=== PATIENT | female | born 1955 | race Caucasian/White ===

== ENCOUNTER 2016-11-04 17:23 | Emergency (ER) | payer BC, OTHER ==
[2016-11-04 17:34] VITALS: BMI 24.6
[2016-11-04] MEDS ORDERED: SODIUM CHLORIDE 1,000 ML IV STA (18:37)
[2016-11-04] MEDS ORDERED: ONDANSETRON 4 MG/2 ML VIAL IVPB ONE (18:37)
--- NOTE | 2016-11-04 18:37 | PDOC ---
History of Present Illness - General History Source: Patient Exam Limitations: No Limitations - History of Present Illness Initial Comments: 11/04/16 18:40 The patient is a 61 year old female with a significant past medical history of 3 herniated discs in her back, chronic back pain, HLD and bilateral glaucoma who presents to the ED with complaints of back pain and flank pain for 6 days and nausea since yesterday. Patient reports on Saturday, she developed right sided flank pain and neck pain with inflammation of the sides of her neck and headache. She states she visited Urgent on Saturday and was prescribed antibiotics for the inflammation of the neck. Since taking the antibiotics, patient states her chronic back pain and right sided flank pain has worsened and is now radiating to her chest every 5 minutes. She states her back pain is worsened with movement. Patient reports her symptoms are progressively worsening as she developed chills, nausea, and one episode of vomiting last night. Patient also reports urinary frequency, generalized epigastric pain and an increase in gas associated with present symptoms. Denies dysuria and hematuria. Denies diarrhea or constipation. Denies chest pain or shortness of breath. Denies any other symptoms. Surgical hx: Eye surgery, Appendectomy, x 3, tubal ligation PMD: Dr. Abernathy <Bert Rangel - Last Filed: 11/04/16 22:42> <Hilda Link - Last Filed: 11/04/16 22:48> - General Chief Complaint: Nausea Stated Complaint: Vomiting Time Seen by Provider: 11/04/16 17:48 Past History <Bert Rangel - Last Filed: 11/04/16 22:42> - Past Medical History Hypercholesterolemia: Yes Other medical history: CYST R KIDNEY - Surgical History Appendectomy: Yes - Psycho/Social/Smoking Cessation Hx Anxiety: No Suicidal Ideation: No Smoking Status: No Smoking History: Never smoked Number of Cigarettes Smoked Daily: 0 Hx Alcohol Use: No Drug/Substance Use Hx: No Substance Use Type: None <Hilda Link - Last Filed: 11/04/16 22:48> - Past Medical History Allergies/Adverse Reactions: Allergies Allergy/AdvReac Type Severity Reaction Status Date / Time lansoprazole [From Prevacid] Allergy Itching Verified 11/04/16 17:57 TOMATOE Allergy Itching Uncoded 11/04/16 17:57 Home Medications: Ambulatory Orders Rosuvastatin Calcium [Crestor] 5 mg PO DAILY 11/04/16 Sulfamethoxazole/Trimethoprim [Bactrim Ds Tablet] 1 each PO DAILY 11/04/16 Review of Systems - Review of Systems Able to Perform ROS?: Yes Comments:: 11/04/16 18:40 CONSTITUTIONAL: + chills Absent: diaphoresis, generalized weakness, malaise, loss of appetite HEENT: Absent: rhinorrhea, nasal congestion, throat pain, throat swelling, difficulty swallowing, mouth swelling, ear pain, eye pain, visual Changes CARDIOVASCULAR: Absent: chest pain, syncope, palpitations, irregular heart rate, lightheadedness , peripheral edema RESPIRATORY: Absent: cough, shortness of breath, dyspnea with exertion, orthopnea, wheezing, stridor, hemoptysis GASTROINTESTINAL: + epigastric pain, nausea, vomiting, increased gas Absent: abdominal distension, diarrhea, constipation, melena, hematochezia GENITOURINARY: + flank pain, frequency Absent: dysuria, urgency, hesitancy, hematuria, genital pain MUSCULOSKELETAL: + neck pain, back pain, neck inflammation SKIN: Absent: rash, itching, pallor HEMATOLOGIC/IMMUNOLOGIC: Absent: easy bleeding, easy bruising, lymphadenopathy, frequent infections ENDOCRINE: Absent: unexplained weight gain, unexplained weight loss, heat intolerance, cold intolerance NEUROLOGIC: + headache Absent: focal weakness or paresthesias, dizziness, unsteady gait, seizure, mental status changes, bladder or bowel incontinence PSYCHIATRIC: Absent: anxiety, depression, suicidal or homicidal ideation, hallucinations. All Other Systems: Reviewed and Negative <Bert Rangel - Last Filed: 11/04/16 22:42> *Physical Exam - Vital Signs Last Vital Signs Temp Pulse Resp BP Pulse Ox 100.1 F H 91 H 18 131/77 96 11/04/16 17:30 11/04/16 17:30 11/04/16 17:30 11/04/16 17:30 11/04/16 17:30 - Physical Exam Comments: 11/04/16 18:40 GENERAL: Well developed, well nourished. Awake and alert. No acute distress. HEENT: Normocephalic, atraumatic. PERRLA, EOMI. No conjunctival pallor. Sclera are non- icteric. Moist mucous membranes. Oropharynx is clear. NECK: Supple. Full ROM. No JVD. Carotid pulses 2+ and symmetric, without bruits. No thyromegaly. NCo lymphadenopathy. CARDIOVASCULAR: Regular rate and rhythm. No murmurs, rubs, or gallops. Distal pulses are 2+ and symmetric. PULMONARY: No evidence of respiratory distress. Lungs clear to auscultation bilaterally. No wheezing, rales or rhonchi. ABDOMINAL: + slight epigastric tenderness Soft. Non-distended. No rebound or guarding. No organomegaly. Normoactive bowel sounds. MUSCULOSKELETAL + right sided CVA tenderness Normal range of motion at all joints. No bony deformities or tenderness. EXTREMITIES: No cyanosis. No clubbing. No edema. No calf tenderness. SKIN: Warm and dry. Normal capillary refill. No rashes. No jaundice. NEUROLOGICAL: Alert, awake, appropriate. Cranial nerves 2-12 intact. No deficits to light touch and temperature in face, upper extremities and lower extremities. No motor deficits in the in face, upper extremities and lower extremities. Normoreflexic in the upper and lower extremities. Normal speech. Toes are down- going bilaterally. Gait is normal without ataxia. PSYCHIATRIC: Cooperative. Good eye contact. Appropriate mood and affect. <Bert Rangel - Last Filed: 11/04/16 22:42> - Vital Signs Last Vital Signs Temp Pulse Resp BP Pulse Ox 100.1 F H 91 H 18 131/77 96 11/04/16 17:30 11/04/16 17:30 11/04/16 17:30 11/04/16 17:30 11/04/16 17:30 <Hilda Link - Last Filed: 11/04/16 22:48> ED Treatment Course - LABORATORY CBC & Chemistry Diagram: 11/04/16 18:50 11/04/16 18:50 - RADIOLOGY Radiograph Interpretation: 11/04/16 21:23 EXAM: CT ABDOMEN AND PELVIS WITHOUT CONTRAST IMPRESSION: Possible early pancreatitis of the pancreatic head if appropriate clinically. No renal stones or evidence of obstructive uropathy. Right renal cyst. Reported by: Imaging python django developer, Deena Poole D.O. <Bert Rangel - Last Filed: 11/04/16 22:42> - LABORATORY CBC & Chemistry Diagram: 11/04/16 18:50 11/04/16 18:50 <Hilda Link - Last Filed: 11/04/16 22:48> Medical Decision Making - Medical Decision Making 11/04/16 22:44 61-year-old female presents with complaint of some right-sided flank pain, chills, vomited once today. She states that she started antibiotics last Saturday and still has 2 days left of her Bactrim. CBC shows no leukocytosis Chemistries essentially unremarkable Urinalysis shows 54,000, RBCs is nitrate negative and leukocyte esterase negative CAT scan found no cholecystitis, liver, spleen, adrenals are grossly unremarkable. No renal stones or evidence obstruction seen. 3 cm lower pole cyst in the right kidney. Abdominal aorta without a shift. UA, no retroperitoneal hemorrhage. Sigmoid diverticulosis without inflammation and no evidence of obstruction, ascites, free air, diverticulitis Patient might have had a stone earlier for a hemorrhagic cystitis. She was told to finish taking her Bactrim and please follow-up with her primary care physician <Hilda Link - Last Filed: 11/04/16 22:48> *DC/Admit/Observation/Transfer - Attestations Scribe Attestion: 11/04/16 18:40 Documentation prepared by Bert Rangel, acting as electromedical equipment repairer for Hilda Link MD <Bert Rangel - Last Filed: 11/04/16 22:42> <Hilda Link - Last Filed: 11/04/16 22:48> Diagnosis at time of Disposition: Acute flank pain - Discharge Dispostion Disposition: HOME Condition at time of disposition: Stable - Referrals Referrals: Saul Abernathy MD [Primary Care Provider] - - Patient Instructions Additional Instructions: please finish your antibiotics and follow up with your physician this week Return to the emergency department for any worsening symptoms
[2016-11-04] MEDS ORDERED: ACETAMINOPHEN 325 MG TABLET (FP) PO ONE (18:38)
[2016-11-04] MEDS ORDERED: ONDANSETRON 4 MG/2 ML VIAL ONE (19:01)
[2016-11-04] MEDS ORDERED: ACETAMINOPHEN 325 MG TABLET (FP) ONE (19:01)
[2016-11-04 19:02] LABS: BASOPHIL 0.2 % (0-2.0); EOSINOPHIL 16.1 % (0-4.5); MCH 27.2 pg (25.7-33.7); MCHC 32.1 g/dl (32.0-36.0); MEAN CELL VOLUME 84.7 fl (80-96); MEAN PLT VOLUME 8.7 fl (7.5-11.1); NEUTROPHILS 62.1 % (42.8-82.8); PLATELET COUNT 202 K/MM3 (134-434); WHITE BLOOD COUNT 3.6 K/mm3 (4.0-10.0)
[2016-11-04 19:03] LABS: URINE APPEARANCE CLEAR; URINE BILIRUBIN NEGATIVE (NEGATIVE); URINE BLOOD 3+ (NEGATIVE); URINE COLOR LTYELLOW; URINE GLUCOSE (UA) NEGATIVE (NEGATIVE); URINE KETONE NEGATIVE (NEGATIVE); URINE LEUK ESTERASE NEGATIVE (NEGATIVE); URINE NITRITE NEGATIVE (NEGATIVE); URINE PROTEIN NEGATIVE (NEGATIVE); URINE UROBILINOGEN NEGATIVE mg/dL (0.2-1.0)
[2016-11-04 19:07] LABS: URINE MUCUS RARE; URINE RBC 54 /hpf (0-3); URINE WBC 2 /hpf (3-5)
[2016-11-04 20:03] LABS: ALBUMIN 3.9 g/dl (3.4-5.0); ANION GAP 10 (8-16); BILIRUBIN,TOTAL 0.2 mg/dL (0.2-1.0); CALCIUM 9.5 mg/dL (8.5-10.1); CO2 24 mmol/L (21-32); GLUCOSE,RANDOM 103 mg/dL (74-106); SGOT/AST 25 U/L (15-37); SGPT/ALT 28 U/L (12-78); TOT PROT 7.9 g/dl (6.4-8.2)
[2016-11-04 20:04] LABS: ALK PHOS 133 U/L (45-117)
[2016-11-04 20:37] VITALS: TEMP 98.4
[2016-11-04 22:55] VITALS: BP 116/74; PULSE 88
== END 2016-11-04 22:55 | disposition home or self-care (01) ==
LOC: JER 17:23
PROC: 3E033GC Introduction of Other Therapeutic Substance into Peripheral Vein, Percutaneous Approach (ICD-10-PCS; principal; 2016-11-04)
DX: R10.31 Right lower quadrant pain (principal); R35.0 Frequency of micturition; M54.5 Low back pain; G89.29 Other chronic pain; E78.00 Pure hypercholesterolemia, unspecified; H40.9 Unspecified glaucoma
CPT/HCPCS: 36415; 71020-TC; 74176; 80053; 81003; 81015; 83690; 85025; 87040; 87086; 99283-25

== ENCOUNTER 2017-05-27 20:20 | Emergency (ER) | payer BC, OTHER ==
[2017-05-27 21:01] VITALS: PULSE 74; BMI 26.4
--- NOTE | 2017-05-27 21:01 | PDOC ---
Rapid Medical Evaluation Time Seen by Provider: 05/27/17 20:51 Medical Evaluation: Allergies Allergy/AdvReac Type Severity Reaction Status Date / Time lansoprazole [From Prevacid] Allergy Itching Verified 11/04/16 17:57 TOMATOE Allergy Itching Uncoded 11/04/16 17:57 05/27/17 20:51 I have performed a brief in-person evaluation of this patient. The patient presents with a chief complaint of: missed step, fell on stairs around 7 pm, pain to L leg/shoulder, left trapezius pain, "left eye feels heavy ", c/o SOB, denies LOC/nausea/dizziness, per family "talking slower than usual" , no slurred speech Pertinent physical exam findings: tenderness to L trap, ambulatory, no focal neuro deficits I have ordered the following: L shoulder x-ray The patient will proceed to the ED for further evaluation. Discharge Disposition - Diagnosis Fall - Referrals - Patient Instructions - Post Discharge Activity
[2017-05-27] MEDS ORDERED: IBUPROFEN 600 MG TABLET (FP) PO ONE ×2 (23:04→23:17)
--- NOTE | 2017-05-27 23:10 | PDOC ---
History of Present Illness <Sydney Hopkins - Last Filed: 05/28/17 01:46> - General History Source: Patient Exam Limitations: No Limitations - History of Present Illness Initial Comments: 05/28/17 03:02 Patient is a 61 year old female with a significant past medical history of herniated discs in her back, chronic back pain, HLD and bilateral glaucoma who presents to the ED with complaints of of left hand and knee pain, s/p fall that occurred just prior to ED visit. She reports walking on stairs in a store when she slipped and on a step, causing her to fall forward, landing on her left hand and left leg. Patient states her blood pressure has been high since her initial fall, stating that is why the left side of face feels heavy. Denies chest pain, sob. Denies nausea, vomiting. Denies fevers, chills. Denies Allergies: Prevacid, Tomato Social history: No smoking. No alcohol. No illicit drug. Surgical history: Eye surgery, Appendectomy, x 3, tubal ligation PMD: Dr. Abernathy <Chris Morley - Last Filed: 05/28/17 03:03> - General Chief Complaint: Injury Stated Complaint: FALL Time Seen by Provider: 05/27/17 20:51 Past History - Past Medical History COPD: No Hypercholesterolemia: Yes Other medical history: glaucoma B - Surgical History Appendectomy: Yes - Suicide/Smoking/Psychosocial Hx Smoking Status: No Smoking History: Never smoked Have you smoked in the past 12 months: No Number of Cigarettes Smoked Daily: 0 Information on smoking cessation initiated: No Hx Alcohol Use: No Drug/Substance Use Hx: No Substance Use Type: None <Sydney Hopkins - Last Filed: 05/28/17 01:46> <Chris Morley - Last Filed: 05/28/17 03:03> - Past Medical History Allergies/Adverse Reactions: Allergies Allergy/AdvReac Type Severity Reaction Status Date / Time lansoprazole [From Prevacid] Allergy Itching Verified 11/04/16 17:57 TOMATOE Allergy Itching Uncoded 11/04/16 17:57 Home Medications: Ambulatory Orders Rosuvastatin Calcium [Crestor] 5 mg PO DAILY 11/04/16 Review of Systems - Review of Systems Able to Perform ROS?: Yes Comments:: 05/28/17 03:03 GENERAL/CONSTITUTIONAL: No fever or chills. No weakness. HEAD, EYES, EARS, NOSE AND THROAT: No change in vision. No ear pain or discharge. No sore throat. GASTROINTESTINAL: No nausea, vomiting, diarrhea or constipation. GENITOURINARY: No dysuria, frequency, or change in urination. CARDIOVASCULAR: No chest pain or shortness of breath. RESPIRATORY: No cough, wheezing, or hemoptysis. MUSCULOSKELETAL: +Left knee pain. +Left hand pain. +Left neck pain. No joint or muscle swelling. No back pain. SKIN: No rash NEUROLOGIC: No headache, vertigo, loss of consciousness, or change in strength/ sensation. ENDOCRINE: No increased thirst. No abnormal weight change. HEMATOLOGIC/LYMPHATIC: No anemia, easy bleeding, or history of blood clots. ALLERGIC/IMMUNOLOGIC: No hives or skin allergy. <Chris Morley - Last Filed: 05/28/17 03:03> *Physical Exam - Vital Signs Last Vital Signs Temp Pulse Resp BP Pulse Ox 98 F 74 20 174/91 99 05/27/17 20:57 05/27/17 20:57 05/27/17 20:57 05/27/17 20:57 05/27/17 20:57 <Sydney Hopkins - Last Filed: 05/28/17 01:46> - Vital Signs Last Vital Signs Temp Pulse Resp BP Pulse Ox 98.1 F 74 18 142/76 98 05/28/17 01:59 05/28/17 01:59 05/28/17 01:59 05/28/17 01:59 05/28/17 01:59 - Physical Exam Comments: 05/28/17 03:03 GENERAL: Awake, alert, and fully oriented, in no acute distress HEAD: No signs of trauma EYES: +Pupils equal round and reactive to light PERRLA, EOMI, sclera anicteric, conjunctiva clear ENT: Auricles normal inspection, hearing grossly normal, nares patent, oropharynx clear without exudates. Moist mucosa NECK: Normal ROM, supple, no lymphadenopathy, JVD, or masses LUNGS: Breath sounds equal, clear to auscultation bilaterally. No wheezes, and no crackles HEART: Regular rate and rhythm, normal S1 and S2, no murmurs, rubs or gallops ABDOMEN: Soft, nontender, normoactive bowel sounds. No guarding, no rebound. No masses MUSCULOSKELETAL: No midline cervical spine tenderness. No snuff box tenderness. Non tender skin intact ambulation with steady gait. EXTREMITIES: +Diffuse tenderness to left shoulder. +Hypertonicity to the left SCM. +Full ROM of left shoulder. Normal range of motion, no edema. No clubbing or cyanosis. No cords, erythema, or tenderness NEUROLOGICAL: Cranial nerves II through XII grossly intact. Normal speech, normal gait SKIN: Warm, Dry, normal turgor, no rashes or lesions noted. <Chris Morley - Last Filed: 05/28/17 03:03> ED Treatment Course - RADIOLOGY Radiology Studies Ordered: Category Date Time Status CHEST PA & LAT [RAD] Stat Radiology 05/27/17 23:03 Ordered <Sydney Hopkins - Last Filed: 05/28/17 01:46> - Medications Given in the ED: ED Medications Discontinued Medications Generic Name Dose Route Start Last Admin Trade Name Mike PRN Reason Stop Dose Admin Ibuprofen 600 mg 05/27/17 23:04 05/27/17 23:19 Motrin - PO 05/27/17 23:05 600 mg ONCE ONE Administration <Chris Morley - Last Filed: 05/28/17 03:03> Medical Decision Making - Medical Decision Making 05/27/17 23:11 [id number] presenting with L shoulder and L lateral neck pain s/p mechanical fall this afternoon. Took a misstep while going up stairs and fell forward onto her L side , bracing herself with her L hand. Denies head trauma, denies back pain. + slight pain to L hogue. Provider in triage note mentions that family member noted slow speech - when I ask daughter about this she says "she just seems tired, she's speaking and acting normally". Well appearing, +slight ttp to L trapezius/SCM. NO midline c spine tnd, no headstrike, no N/V. No midline T/L spine. No s/o trauma to LE. - XR L shoulder/chest - Motrin - Reassess - Anticipate discharge 05/27/17 23:16 XR imaging reviewed, pt still with a little pain but has improved. Awaiting XR results, L clavicle looks irregular. 05/28/17 01:46 XR with degenerative changes, no frx. Will dc home with instructions to stay mobile/stretch, take motrin or tylenol for pain, f/u with PMD and return to ER if sxs worsen. <Sydney Hopkins - Last Filed: 05/28/17 01:46> *DC/Admit/Observation/Transfer - Discharge Dispostion Admit: No <Sydney Hopkins - Last Filed: 05/28/17 01:46> - Attestations Scribe Attestion: 05/28/17 03:03 Documentation prepared by Chris Morley, acting as medical file clerk for Sydney Hopkins DO, MD/. <Chris Morley - Last Filed: 05/28/17 03:03> Diagnosis at time of Disposition: Fall - Discharge Dispostion Disposition: HOME Condition at time of disposition: Good - Referrals Referrals: Saul Abernathy MD [Primary Care Provider] - - Patient Instructions Printed Discharge Instructions: DI for Shoulder Pain Additional Instructions: You were seen in the ER for pain after a fall. Your x-rays did not show any broken bones. Please take tylenol or motrin for pain, use ice and/or heat therapy and make sure to stretch. If any new or concerning symptoms, please return to the ER. Please also visit your primary care doctor. - Post Discharge Activity
[2017-05-28 02:00] VITALS: BP 142/76; TEMP 98.1
--- NOTE | 2017-05-28 08:53 | EKG ---
Test Reason : Blood Pressure : / mmHG Vent. Rate : 063 BPM Atrial Rate : 063 BPM P-R Int : 132 ms QRS Dur : 082 ms QT Int : 418 ms P-R-T Axes : 019 030 023 degrees QTc Int : 427 ms NORMAL SINUS RHYTHM WITH SINUS ARRHYTHMIA NORMAL ECG WHEN COMPARED WITH ECG OF 11-FEB-2005 09:14, NO SIGNIFICANT CHANGE WAS FOUND Confirmed by Deejay Westfall MD ([id number]) on 05/28/2017 8:52:28 AM Referred By: Confirmed By:Deejay Westfall MD
== END 2017-05-28 02:03 | disposition home or self-care (01) ==
LOC: JER 20:20
DX: M25.512 Pain in left shoulder (principal); M54.2 Cervicalgia; M79.642 Pain in left hand; M25.562 Pain in left knee; W10.8XXA Fall (on) (from) other stairs and steps, initial encounter; Y93.89 Activity, other specified; Y92.512 Supermarket, store or market as the place of occurrence of the external cause; Y99.8 Other external cause status; M54.89 Other dorsalgia; G89.29 Other chronic pain; E78.00 Pure hypercholesterolemia, unspecified; H40.89 Other specified glaucoma
CPT/HCPCS: 71046-TC-FY; 73030-TC-LT-FY; 93005; 93010; 99281-25